=== PATIENT | female | born 1980 | race Caucasian/White ===

== ENCOUNTER 2020-08-31 14:50 | Emergency (ER) | payer OTHER, MEDICAID ==
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
[2020-08-31] MEDS ORDERED: ACETAMINOPHEN 325 MG TABLET PO ONE ×2 (15:34→18:30)
[2020-08-31] MEDS ORDERED: DIPH/PERTUSS(ACELL)/TETANUS VAC/PF 0.5 ML SYR (>=10YO) IM ONE ×2 (15:34→18:30)
[2020-08-31 16:37] LABS: ABSOLUTE EOSINOPHILS # (AUTO) 0.1 10^3/uL (0.0-0.6); ABSOLUTE LYMPHOCYTES (AUTO) 2.1 10^3/uL (0.5-4.7); ABSOLUTE MONOCYTES (AUTO) 1.1 10^3/uL (0.1-1.4); ABSOLUTE NEUT (AUTO) 8.6 10^3/uL (1.7-8.2); BASOPHILS % (AUTO) 0.2 % (0-2); EOSINOPHILS % (AUTO) 1.2 % (0-6); HEMATOCRIT 42.9 % (36.0-47.0); HEMOGLOBIN 14.6 g/dL (12.0-15.5); LYMPHOCYTES % (AUTO) 17.6 % (13-45); MEAN CORPUSCULAR HEMOGLOBIN 32.9 pg (27.0-33.4); MEAN CORPUSCULAR HGB CONC 34.1 g/dL (32.0-36.0); MEAN CORPUSCULAR VOLUME 97 fl (80-97); MONOCYTES % (AUTO) 9.5 % (3-13); PLATELET COUNT 347 10^3/uL (150-450); RED BLOOD COUNT 4.44 10^6/uL (3.72-5.28); RED CELL DISTRIBUTION WIDTH 13.5 % (11.5-14.0); SEGMENTED NEUTROPHILS % (AUTO) 71.5 % (42-78); TOTAL CELLS COUNTED % (AUTO) 100 %
[2020-08-31 16:59] LABS: ANION GAP 6 (5-19); BLOOD UREA NITROGEN 15 mg/dL (7-20); CALCIUM 9.7 mg/dL (8.4-10.2); CARBON DIOXIDE 27 mmol/L (22-30); CHLORIDE 106 mmol/L (98-107); GLUCOSE 95 mg/dL (75-110); POTASSIUM 4.2 mmol/L (3.6-5.0)
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
[2020-08-31] MEDS ORDERED: MORPHINE SULFATE 10 MG/ML INJ IV ONE (17:52)
[2020-08-31] MEDS ORDERED: DIAZEPAM INJ 10 MG/2 ML DISP.SYRIN IV ONE (17:52)
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
[2020-09-01] MEDS ORDERED: OXYCODONE-ACETAMINOPHEN 5-325 MG TABLET PO ONE ×3 (08:32→15:34)
[2020-09-01] MEDS ORDERED: CYCLOBENZAPRINE HCL 10 MG TABLET PO ONE ×2 (08:33→18:45)
[2020-09-01] MEDS ORDERED: NICOTINE 14 MG/24 HR PATCH.TD24 TD ONE (09:44)
[2020-09-01 13:58] LABS: APPEARANCE,URINE SLIGHTLY-CLOUDY; BILIRUBIN,URINE NEGATIVE (NEGATIVE); COLOR,URINE YELLOW; GLUCOSE, URINE NEGATIVE (NEGATIVE); KETONES,URINE NEGATIVE (NEGATIVE); LEUKOCYTE ESTERASE,URINE TRACE (NEGATIVE); NITRITE,URINE POSITIVE (NEGATIVE); PROTEIN,URINE NEGATIVE (NEGATIVE); URINE SPECIFIC GRAVITY 1.016; UROBILINOGEN,URINE NEGATIVE mg/dL (<2.0)
[2020-09-01] MEDS ORDERED: HYDROXYZINE PAMOATE 25 MG CAPSULE PO ONE (16:10)
[2020-09-01] MEDS ORDERED: CEPHALEXIN 500 MG CAPSULE PO ONE (16:10)
[2020-09-01 16:36] LABS: URINE BARBITURATES SCREEN NEGATIVE; URINE COCAINE SCREEN NEGATIVE; URINE MARIJUANA (THC) SCREEN NEGATIVE; URINE METHADONE SCREEN NEGATIVE; URINE PHENCYCLIDINE SCREEN NEGATIVE
[2020-09-01 16:37] LABS: URINE AMPHETAMINES SCREEN UNCONFIRMED POSITIVE; URINE BENZODIAZEPINES SCREEN UNCONFIRMED POSITIVE
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
[2020-09-01] MEDS: OXYCODONE-ACETAMINOPHEN 5-325 MG TABLET PO SCH (19:17)
[2020-09-01] MEDS: IBUPROFEN 600 MG TABLET PO SCH (19:23)
[2020-09-01] MEDS: CYCLOBENZAPRINE HCL 10 MG TABLET PO SCH (19:23)
[2020-09-02] MEDS: IBUPROFEN 600 MG TABLET PO SCH ×2 (04:01→09:26)
[2020-09-02] MEDS: OXYCODONE-ACETAMINOPHEN 5-325 MG TABLET PO SCH ×2 (04:01→08:16)
[2020-09-02] MEDS: CYCLOBENZAPRINE HCL 10 MG TABLET PO SCH (09:25)
[2020-09-02] MEDS ORDERED: CEPHALEXIN 500 MG CAPSULE PO ONE (10:06)
[2020-09-02 11:01] VITALS: BP 135/75
== END 2020-09-02 10:52 | disposition home or self-care (01) ==
LOC: EEVIPCON 14:50 → ER 14:50
DX: S30.1XXA Contusion of abdominal wall, initial encounter (principal); S16.1XXA Strain of muscle, fascia and tendon at neck level, initial encounter; S82.831A Other fracture of upper and lower end of right fibula, initial encounter for closed fracture; S39.012A Strain of muscle, fascia and tendon of lower back, initial encounter; N30.00 Acute cystitis without hematuria; R51.9 Headache, unspecified; R07.9 Chest pain, unspecified; M25.562 Pain in left knee; M25.561 Pain in right knee; R05 Cough; M54.9 Dorsalgia, unspecified; M79.10 Myalgia, unspecified site; V49.9XXA Car occupant (driver) (passenger) injured in unspecified traffic accident, initial encounter; F17.200 Nicotine dependence, unspecified, uncomplicated; Z23 Encounter for immunization
CPT/HCPCS: 99285; 90471; 96374; 96375; 36415; 84703; 85025; 80048; 81001; 80307; 73564; 73610; 70450; 71260; 72125; 74177; 90715; J3360; J2270